=== PATIENT | female | born 1975 | race Two or more races ===

== ENCOUNTER 2018-05-15 08:31 | Day surgery (SDC) | payer OTHER, MEDICAID ==
[2018-05-13 15:33] LABS: BASOPHILS % (AUTO) 0.3 % (0-1); EOSINOPHILS # (AUTO) 0.1 X10'3 (0-0.9); EOSINOPHILS % (AUTO) 1.8 % (0-6); LYMPHOCYTES # (AUTO) 2.5 X10'3 (1.1-4.8); LYMPHOCYTES % (AUTO) 36.7 % (21-51); MEAN CORPUSCULAR HEMOGLOBIN 31.6 PG (27.0-31.0); MEAN CORPUSCULAR HGB CONC 34.2 g/dL (33.0-36.5); MEAN CORPUSCULAR VOLUME 92.4 FL (78-98); MEAN PLATELET VOLUME 8.1 FL (7.4-10.4); MONOCYTES # (AUTO) 0.6 X10'3 (0-0.9); MONOCYTES % (AUTO) 8.6 % (2-12); NEUTROPHILS # (AUTO) 3.6 X10'3 (1.8-7.7); NEUTROPHILS % (AUTO) 52.6 % (42-75); PRE OP HEMATOCRIT 37.7 % (35.0-45.0); PRE OP HEMOGLOBIN 12.9 g/dL (12.0-16.0); PRE OP PLATELET COUNT 278 X10'3 (140-440); RED BLOOD COUNT 4.08 X10'6 (4.20-5.60); RED CELL DISTRIBUTION WIDTH 12.6 % (11.5-14.5)
[2018-05-13 15:43] LABS: HCG SERUM QL NEGATIVE
[2018-05-13 15:47] LABS: ALBUMIN 3.8 G/DL (3.4-5.0); ALKALINE PHOSPHATASE 68 IU/L (46-116); BLOOD UREA NITROGEN 11 MG/DL (7-18); BUN/CREATININE RATIO 18.6 (6.6-38.0); CALCIUM 9.3 MG/DL (8.5-10.1); CHLORIDE 103 MMOL/L (99-107); CREATININE 0.59 MG/DL (0.40-0.90); PRE OP ALT 43 U/L (30-65); PRE OP ANION GAP 9 (8-16); PRE OP AST 20 U/L (10-37); PRE OP BILIRUB, TOTAL 0.8 MG/DL (0.0-1.0); PRE OP GLUCOSE 86 MG/DL (70-104); PRE OP POTASSIUM 3.5 MMOL/L (3.4-5.1); PRE OP SODIUM 140 MMOL/L (135-145); TOTAL CARBON DIOXIDE 27.6 MMOL/L (24-32); TOTAL PROTEIN 7.5 G/DL (6.4-8.2); eGFR > 90 ML/MIN
[2018-05-15] VITALS (8 sets, daily range): BP systolic 119–129; BP diastolic 62–77
[~2018-05-15] VITALS: Ht 170.2 cm; Wt 73.5 kg
[~2018-05-15 08:31] MED LIST: NO HOME MEDS; ceFAZolin 2gm in dextrose, iso 100 ML IV ONE; famotidine 20mg tablet PO ONE; ringers solution, lacted 1,000 ML IV SCH
[2018-05-15] MEDS ORDERED: BUPIVAcaine/PF 2.5mg/ml (0.25%) 10ml vial ONE (11:28)
[2018-05-15] MEDS ORDERED: morphine 4 MG/ML inj SYRINge IV PRN ×2 (11:40)
[2018-05-15] MEDS ORDERED: proCHLORperazine 10 MG/2 ml inj IV PRN (11:40)
[2018-05-15] MEDS ORDERED: ringers solution, lacted 1,000 ML IV SCH (11:40)
[2018-05-15] MEDS ORDERED: ondansetron/PF 4mg/2ml inj IV PRN (11:40)
[2018-05-15] MEDS ORDERED: meperidine/PF 25mg/ml syringe IV PRN ×3 (11:40)
[2018-05-15] MEDS ORDERED: sevoflurane 250ml liquid IH ONE (11:41)
[2018-05-15] MEDS ORDERED: acetaminophen 1000 MG/100ml vial IV ONE (11:41)
[2018-05-15] MEDS ORDERED: fentaNYL/PF 50MCG/1 ML 2ML syringe ONE (11:43)
[2018-05-15] MEDS ORDERED: propofol inj 20 ML IV ONE (11:44)
[2018-05-15] MEDS ORDERED: rocuronium 10mg/ml inj IV ONE (11:44)
[2018-05-15] MEDS ORDERED: midazolam 2 mg/2 ml injection ONE (11:44)
[2018-05-15] MEDS ORDERED: ondansetron/PF 4mg/2ml inj ONE (12:24)
[2018-05-15] MEDS ORDERED: dexamethasone sod phosphate 4mg/ml inj. ONE (12:24)
[2018-05-15] MEDS ORDERED: neostigmine methylsulfate 1 MG/ML 10ml vial ONE (12:25)
[2018-05-15] MEDS ORDERED: glycopyrrolate 0.2mg/ml inj ONE (12:25)
--- NOTE | 2018-05-15 13:10 | NUR ---
Received from OR via [facility], accompanied by Anesthesiologist dr smith and report given by Anesthesiolgist. patient a&ox4, DENIES PAIN, V/S WNL, NEUROVASCULAR CHECKS INTACT. LUE PIV, SCD ON, IPERIPAD WITH SCANT DRAINAGE AND UMBILICAL DRESSING CDI.
--- NOTE | 2018-05-15 14:10 | NUR ---
patient a&ox4, DENIES PAIN, V/S WNL, NEUROVASCULAR CHECKS INTACT. LUE PIV, SCD ON, IPERIPAD WITH SCANT DRAINAGE AND UMBILICAL DRESSING CDI. ALL DC CRITERIA HAS BEEN MET. IV OUT WITHOUT ISSUE OR COMPLICATION. DENIES PAIN. FAMILY PRESENT FOR DC PAPERWORK. ALL QUESTIONS ANSWERED, FAMILY ASSISTED PATIENT IN GETTING DRESSED, OUT VIA WHEELCHAIR TO PERSONAL VEHICLE WHERE FAMILY DROVE PATIENT HOME. ALL DC CRITERIA HAS BEEN MET AND DRESSING IS CDI.
== END 2018-05-15 14:10 | disposition home or self-care (01) ==
LOC: PAS 08:31
PROVIDERS: ATTEND Obstetrics & Gynecology
DX: Z30.2 Encounter for sterilization (principal); K42.9 Umbilical hernia without obstruction or gangrene; N80.3 Endometriosis of pelvic peritoneum; Z98.890 Other specified postprocedural states
CPT/HCPCS: 36415; 49585; 58670; 80053; 84703; 85025; A6257; A6258; A6402; J0131; J0690; J1100; J2175; J2250; J2405; J2704; J2710; J3010; J3490; J7120; A7000